=== PATIENT | female | born 1960 | race African-American/Black ===

== ENCOUNTER 2017-05-23 20:18 | Emergency (ER) | payer MEDICARE, MEDICAID ==
[~2017-05-23] VITALS: Ht 170.2 cm; Wt 77.1 kg
[~2017-05-23 20:18] MED LIST: ALBUTEROL SULF8.5 GM INH; AZITHROMYCIN250 MG ORAL; COMBIVENT RESPIM4 GM IH; CYCLOBENZAPRINE10 MG ORAL; DIAZEPAM10 MG ORAL; FOLIC ACID1 MG ORAL; GABAPENTIN300 MG ORAL; LOSARTAN POTASS50 MG ORAL; NORCO 10-325 T1 EACH ORAL; NORCO 10/3251 EA ORAL; NORCO 5-325 TA1 EACH ORAL; PEPCID20 MG ORAL; PREDNISONE20 MG ORAL; PROAIR HFA8.5 GM INH; SOMA350 MG PO; SUBOXONE 8 MG-1 EACH SL; TRAMADOL HCL50 MG ORAL; VALIUM10 MG ORAL; VISTARIL25 M1 PO; ZOFRAN ODT4 MG ORAL
[2017-05-23 20:30] VITALS: BP 105/74
[2017-05-23] MEDS ORDERED: Oxycodone/Acetaminophen 5-325 ORAL ONE (20:45)
[2017-05-23] MEDS ORDERED: Ketorolac 60mg Inj IM ONE (20:45)
[2017-05-23 21:46] LABS: APPEARANCE,URINE CLEAR; KETONES,URINE NEGATIVE (NEGATIVE); LEUKOCYTE ESTERASE ,URINE NEGATIVE (NEGATIVE); NITRITE,URINE NEGATIVE (NEGATIVE); PH,URINE 6.5 (4.5-8.0); PROTEIN,URINE NEGATIVE (NEGATIVE); UROBILINOGEN,URINE NORMAL MG/DL (0.0-1.0)
--- NOTE | 2017-05-23 23:27 | Emergency Room Report ---
History of Present Illness General Chief Complaint: Back Pain-No Injury Source: Patient Present Illness Allergies: Coded Allergies: MORPHINE (Verified Allergy, Unknown, 11/25/15) Nursing Documentation-PMH Hx Cardiac Problems: Yes Hx Hypertension: Yes Hx Asthma: Yes Physical Exam Vital Signs Date Time Temp Pulse Resp B/P Pulse Ox O2 Delivery O2 Flow Rate FiO2 05/23/17 20:14 98.2 76 18 105/74 99 Room Air Medical Decision Making Diagnostic Impression: Primary Impression: Back pain Additional Impression: Chronic pain syndrome Laboratory Tests Test 05/23/17 21:14 Urine Color Pale yellow Urine Appearance Clear Urine pH 6.5 (4.5-8.0) Urine Specific [place] 1.005 (1.005-1.035) Urine Protein Negative (NEGATIVE) Urine Glucose (UA) Negative (NEGATIVE) Urine Ketones Negative (NEGATIVE) Urine Occult Blood Negative (NEGATIVE) Urine Nitrite Negative (NEGATIVE) Urine Bilirubin Negative (NEGATIVE) Urine Urobilinogen Normal MG/DL (0.0-1.0) Urine Leukocyte Esterase Negative (NEGATIVE) Urine Opiates Screen Negative (NEGATIVE) Urine Barbiturates Screen Negative (NEGATIVE) Phencyclidine (PCP) Screen Negative (NEGATIVE) Urine Amphetamines Screen Negative (NEGATIVE) Urine Benzodiazepines Screen Negative (NEGATIVE) Urine Cocaine Screen Negative (NEGATIVE) Urine Marijuana (THC) Screen Negative (NEGATIVE) Status: improved Disposition: HOME, SELF-CARE Condition: Improved Referrals: NOT CHOSEN IPA/,REFERRING (PCP) Franko Seth M.D. May 23, 2017 23:27
[2017-05-23] MEDS ORDERED: Norco 5mg/325mg tab ORAL ONE (23:30)
[2017-05-23] MEDS ORDERED: PEPCID20 MG ORAL (23:30)
[2017-05-23] MEDS ORDERED: ROBAXIN500 MG PO (23:30)
[2017-05-23] MEDS ORDERED: IBUPROFEN600 MG ORAL (23:30)
[2017-05-23] MEDS ORDERED: NORCO 5-325 TA1 EACH ORAL (23:30)
[2017-05-23 23:47] VITALS: BP 112/72
[2017-05-23 23:48] VITALS: BP 112/72
== END 2017-05-23 23:51 | disposition home or self-care (01) ==
LOC: EDBD 20:18 → EMR 20:55
DX: M54.9 Dorsalgia, unspecified (principal); G89.4 Chronic pain syndrome; J45.909 Unspecified asthma, uncomplicated; I10 Essential (primary) hypertension; Z88.6 Allergy status to analgesic agent
CPT/HCPCS: 80300; 81003; 96372; 99283